=== PATIENT | female | born 1940 | race Two or more races ===

== ENCOUNTER 2017-08-08 10:08 | Outpatient (CLI) | payer OTHER ==
[~2017-08-08 10:08] MED LIST: AMOX1TAB5 PO; CIPRO500 MG; CIPRO500 MG PO; INTESTINEX680 MG PO; NEURONTIN800 MG; PROTONIX40 MG; RANITIDINE HCL150 M1 PO; SYNTHROID75 MCG; TOPROL XL25 MG
== END 2017-08-08 14:51 | disposition home or self-care (01) ==
LOC: RX STUDY 10:08
DX: R13.19 Other dysphagia (principal); M19.011 Primary osteoarthritis, right shoulder; N63.10 Unspecified lump in the right breast, unspecified quadrant; N63.20 Unspecified lump in the left breast, unspecified quadrant

== ENCOUNTER 2017-10-25 14:50 | Outpatient (CLI) | payer OTHER | END 2017-10-25 15:15 | disposition home or self-care (01) | LOC: RAD 14:50 | DX: M48.02 Spinal stenosis, cervical region (principal) | CPT/HCPCS: 72141 ==

== ENCOUNTER 2018-02-26 11:09 | Outpatient (CLI) | payer OTHER | END 2018-02-26 11:25 | disposition home or self-care (01) | LOC: MAMO-SONO 11:09 | DX: Z12.31 Encounter for screening mammogram for malignant neoplasm of breast (principal); Z87.898 Personal history of other specified conditions; N64.89 Other specified disorders of breast ==